=== PATIENT | male | born 1970 | race Caucasian/White ===

== ENCOUNTER 2016-09-05 17:51 | Emergency (ER) | payer OTHER ==
[~2016-09-05] VITALS: Ht 177.8 cm; Wt 117.9 kg
[2016-09-05 17:56] VITALS: BP 167/97
--- NOTE | 2016-09-05 18:13 | ED ANKLE/FOOT INJURY COMPLAINT ---
History of Present Illness General Chief Complaint: Foot or Ankle Injury Stated Complaint: LT ANKLE PAIN Source: patient Exam Limitations: no limitations Vital Signs & Intake/Output Vital Signs & Intake/Output Vital Signs Date Time Temp Pulse Resp B/P B/P Pulse O2 O2 Flow FiO2 Mean Ox Delivery Rate 09/05 1756 96.7 90 16 167/97 100 Room Air ED Intake and Output 09/06 0000 09/05 1200 Intake Total Output Total Balance Patient 260 lb Weight Weight Reported by Patient Measurement Method Allergies Coded Allergies: NO KNOWN ALLERGIES (09/05/16) Reconcile Medications Atorvastatin Calcium 10 MG TABLET 1 TAB PO DAILY CHOLESTEROL (Reported) Triamterene/Hydrochlorothiazid (Triamterene-Hctz 37.5-25 MG Cp) 37.5 MG-25 MG CAPSULE 1 CAP PO DAILY BP (Reported) Triage Note: PT STATES HE WAS PLAYING BASKETBALL AND TWISTED HIS LEFT ANKLE. PT STATES THIS HAPPEND 15 MINUTES HEAD OF MERCHANDISE BUYING. Triage Nurses Notes Reviewed? yes Occurred: just prior to arrival Duration: minute(s):, constant Timing: single episode today Severity: moderate, severe Pain/Injury Location: Left: Ankle. No Modifying Factors: none HPI: 46-year-old male comes into emergency room for evaluation of left ankle pain. Patient reports he twisted while playing possible. Sharp from pain. Soft tissue swelling swelling. Denies any trauma or injury anywhere else. (MICHELLE VAN) Past History Travel History Traveled to [place] past 21 day No Medical History Any Pertinent Medical History? see below for history Cardiovascular: hypertension, hyperlipidemia Surgical History Surgical History: non-contributory Psychosocial History What is your primary language Belgian Tobacco Use: Never used ETOH Use: occasional use Illicit Drug Use: denies illicit drug use Family History Hx Contributory? No (MICHELLE VAN) Review of Systems Review of Systems Constitutional: Reports: no symptoms. EENTM: Reports: no symptoms. Respiratory: Reports: no symptoms. Cardiovascular: Reports: no symptoms. GI: Reports: no symptoms. Genitourinary: Reports: no symptoms. Musculoskeletal: Reports: see HPI. Skin: Reports: no symptoms. Neurological/Psychological: Reports: no symptoms. Hematologic/Endocrine: Reports: no symptoms. Immunologic/Allergic: Reports: no symptoms. All Other Systems: Reviewed and Negative (MICHELLE VAN) Physical Exam Physical Exam General Appearance: well developed/nourished, mild distress Head: atraumatic Eyes: Bilateral: normal appearance. Ears, Nose, Throat: normal ENT inspection, hearing grossly normal Neck: normal inspection Cardiovascular/Respiratory: no respiratory distress Back: normal inspection Leg/Knee/Thigh Left: normal range of motion Ankle Left: soft tissue tenderness, swelling, tenderness, limited range of motion Foot Left: normal inspection, normal range of motion Neuro/Vascular: normal motor function, normal sensation Psychiatric: awake, alert, oriented x 3 Skin: intact, normal color, warm/dry (LUIS PACHECO,MICHELLE) Progress Differential Diagnosis: fracture, dislocation, sprain, contusion Plan of Care: Orders Procedure Date/time Status Durable Medical Equipment 09/06 1939 Active Diagnostic Imaging: Viewed by Me: Radiology Read. Discussed w/RAD: Radiology Read. Radiology Impression: PATIENT: RIO WATST PRESENT AGE: 46 PATIENT ACCOUNT NO: [id number] : 70 LOCATION: [facility] ORDERING PHYSICIAN: MICHELLE PACHECO SERVICE DATE: 09/05/16 EXAM TYPE : RAD - XRY-ANKLE 3 OR MORE VIEWS L EXAMINATION: XR ANKLE, LEFT CLINICAL INFORMATION: Left ankle pain and swelling after injury COMPARISON: None TECHNIQUE: AP, lateral, and mortise views of the left ankle. FINDINGS: The talar dome is well-positioned within the ankle mortise. No evidence of osteochondral fracture at the talar dome. The tibiotalar joint space and tibiofibular syndesmotic space are normal. There is a faintly visible 3 mm calcification at the fibular tip. Also, a small 1 mm calcification projects distal to the fibular tip. Soft tissues of the anterolateral ankle are swollen. There are well- corticated, 0.2 cm and 0.5 cm ossific bodies of the posterior ankle, and these are slightly higher in position than expected for an os trigonum. The calcaneus and other tarsal bones are unremarkable. IMPRESSION: 1. Post traumatic soft tissue swelling of the anterolateral ankle. 2. Probable recent, tiny avulsion fracture at the fibular tip. 3. The 0.2 cm and 0.5 cm ossific bodies of the posterior ankle are likely unrelated to the recent trauma. These could represent intra-articular ossific bodies in the posterior ankle recess. DICTATED BY: LATHA PHILLIP MD DATE/TIME DICTATED:09/05/161821 FILENET ADMIN:BEST DATE/TIME TRANSCRIBED:09/05/161821 CONFIDENTIAL, DO NOT COPY WITHOUT APPROPRIATE AUTHORIZATION. <Electronically signed in Other Vendor System> SIGNED BY: LATHA PHILLIP MD 09/05/161831 (MICHELLE VAN) Departure Departure Disposition: HOME OR SELF CARE Condition: Stable Clinical Impression Primary Impression: Avulsion fracture of ankle Referrals: SANDRA PHELPS (PCP/Family) KEILA MURRAY,RAVIN Villanueva Additional Instructions: Ice. Rest. Stay nonweightbearing. Follow-up with orthopedic doctor provided. Return if any concerns worsening symptoms. Please go over all results of today's visit with your primary care doctor. Contact your primary care doctor to let them know you were here in the emergency room. There may be nonspecific findings which may not be related to your visit today here in the emergency room but may require further evaluation and chronic monitoring by your primary care doctor. If you had a laceration today the chance of foreign body always remains. You should follow-up with your primary care doctor for recheck in 3-5 days for a wound check. If you had an x-ray done there is a chance that a fracture could have been missed on initial read and you should follow-up with your primary care doctor for repeat x-rays if symptoms persist. If your blood pressure was elevated here in the emergency room please have rechecked by her primary care doctor within the next 48 hours by your primary care doctor. If you were prescribed a narcotic here in the emergency room or any type of controlled substances you're not allowed to drive while taking this medication or operate any type of heavy machinery. Narcotics can make you feel lightheaded dizziness nausea and can cause constipation. You may need to merchandise pickup/receiving associate a stool softener. Thank you for choosing [facility] emergency room. Please return to the emergency room immediately if you have any other concerns worsening of symptoms. Departure Forms: Customer Survey General Discharge Information (MICHELLE VAN) PA/FINAL CANOE INSPECTOR Co-Sign Statement Statement: ED Attending supervision documentation- [] I saw and evaluated the patient. I have also reviewed all the pertinent lab results and diagnostic results. I agree with the findings and the plan of care as documented in the PA's/FINAL CANOE INSPECTOR's documentation. [x] I have reviewed the ED Record and agree with the PA's/FINAL CANOE INSPECTOR's documentation. [] Additions or exceptions (if any) to the PAs/FINAL CANOE INSPECTOR's note and plan are summarized below: [] (BLOSSOM MURRAY,JERROD Patton) Procedures Splinting Location: LEFT ANKLE Manual Alignment Performed: No Pre-Made Type: oRTHO-gLASS Splint: posterior walking Splint Applied By: splint applied by me Pre-Proc Neuro Vasc Exam: normal Post-Proc Neuro Vasc Exam: normal (MICHELLE VAN)
--- NOTE | 2016-09-05 18:32 | RADIOLOGY REPORT ---
EXAMINATION: XR ANKLE, LEFT CLINICAL INFORMATION: Left ankle pain and swelling after injury COMPARISON: None TECHNIQUE: AP, lateral, and mortise views of the left ankle. FINDINGS: The talar dome is well-positioned within the ankle mortise. No evidence of osteochondral fracture at the talar dome. The tibiotalar joint space and tibiofibular syndesmotic space are normal. There is a faintly visible 3 mm calcification at the fibular tip. Also, a small 1 mm calcification projects distal to the fibular tip. Soft tissues of the anterolateral ankle are swollen. There are well-corticated, 0.2 cm and 0.5 cm ossific bodies of the posterior ankle, and these are slightly higher in position than expected for an os trigonum. The calcaneus and other tarsal bones are unremarkable. IMPRESSION: 1. Post traumatic soft tissue swelling of the anterolateral ankle. 2. Probable recent, tiny avulsion fracture at the fibular tip. 3. The 0.2 cm and 0.5 cm ossific bodies of the posterior ankle are likely unrelated to the recent trauma. These could represent intra-articular ossific bodies in the posterior ankle recess.
[2016-09-05] MEDS ORDERED: TRIAMTERENE-HC1 EAC3 PO (19:16)
[2016-09-05] MEDS ORDERED: ATORVASTATIN CA10 M1 PO (19:17)
== END 2016-09-05 20:01 ==
LOC: ERH 17:51
DX: S82.899A Other fracture of unspecified lower leg, initial encounter for closed fracture (principal); X58.XXXA Exposure to other specified factors, initial encounter; Y93.67 Activity, basketball
CPT/HCPCS: 73610-LT